=== PATIENT | female | born 1945 | race Asian ===

== ENCOUNTER 2017-06-05 15:53 | Emergency (ER) | payer OTHER ==
[~2017-06-05] VITALS: Ht 165.1 cm; Wt 67.0 kg
[~2017-06-05 15:53] MED LIST: ALEN70TA30 PO; BISA5TAB6 PO; CALC-484 PO; FENO134C PO; [UNRECOGNIZED DRUG - OTHER]
[2017-06-05 16:03] VITALS: Ht 165.1 cm; Wt 67.0 kg
--- NOTE | 2017-06-05 17:06 | ERD ---
ER Documentation Chief Complaint Date/Time DATE: 06/05/17 TIME: 17:01 Chief Complaint Sent from MD for eval left ankle pain HPI Patient is a 72-year-old female with a past medical history of diabetes and hyperlipidemia who presents to the emergency department for concerns of left ankle pain 2 months. Patient is Divehi speaking. RT staff present throughout encounter to assist with translation. Patient states she was referred here by her primary care physician. Patient states 2 months ago she was turning when her foot accidentally got stuck in the hole outside and she twisted her leg. She states since that time she has had pain with ambulating and bearing weight to the affected extremity. Patient has been ambulating on the affected extremity. Patient did see her primary care physician recently who ordered x- ray imaging. Per report patient brings in, patient has a "nondisplaced transverse fracture of the distal left fibula. Moderate plantar calcaneal spur. There is a small enthesophyte at the posterior Cutaneous Achilles tendon insertion. Ankle mortise is intact. " She has been bearing weight to the affected extremity. Patient denies any previous injuries. Denies any fevers, chills, nausea, vomiting, head injury, back pain or loss of consciousness per ROS All systems reviewed and are negative except as per history of present illness. Medications Home Meds Active Scripts Ibuprofen* (Motrin*) 400 Mg Tab, 400 MG PO Q6, #30 TAB Prov:LAYTON SALES PA-C 06/05/17 Reported Medications Alendronate Sodium* (Fosamax*) 70 Mg Tablet, 70 MG PO WEEKLY 12/03/12 [Doscusate] No Conflict Check, HS 12/03/12 Fenofibrate, Micronized (Fenofibrate) 134 Mg Capsule, 134 MG PO DAILY 12/03/12 Bisacodyl* (Bisacodyl*) 5 Mg Tablet.dr, 5 MG PO DAILY 12/03/12 Calcium Carbonate/Vitamin D3 (Calcium 600 + D Tablet) 1 Tab Tablet, 1 TAB PO BID 12/03/12 Allergies Allergies: Coded Allergies: No Known Allergy (Unverified , 09/03/14) PMhx/Soc History of Surgery: No Anesthesia Reaction: No Hx Neurological Disorder: Yes (CHRONIC BACK PAIN) Hx Respiratory Disorders: Yes (URI) Hx Cardiac Disorders: No Hx Psychiatric Problems: No Hx Miscellaneous Medical Probl: No Hx Alcohol Use: No Hx Substance Use: No Hx Tobacco Use: No Smoking Status: Never smoker Physical Exam Vitals Vital Signs Date Time Temp Pulse Resp B/P Pulse Ox O2 Delivery O2 Flow Rate FiO2 06/05/17 16:03 98.6 77 20 135/65 96 Physical Exam GENERAL: Well-developed, well-nourished female. Appears in no acute distress. HEAD: Normocephalic, atraumatic. EYES: Pupils are equally reactive bilaterally. EOMs grossly intact. No conjunctival erythema. ENT: Moist mucous membranes. No uvula deviation. No kissing tonsils. NECK: Supple. No meningismus. Normal range of motion of the neck. LUNG: Clear to auscultation bilaterally. No rhonchi, wheezing, rales or coarse breath sounds. HEART: Regular rate and rhythm. No murmurs, rubs or gallops. EXTREMITIES: Equal pulses bilaterally. No peripheral clubbing, cyanosis or edema. No unilateral leg swelling. NEUROLOGIC: Alert and oriented. Moving all four extremities without any difficulty. Normal speech. SKIN: Normal color. Warm and dry. No rashes or lesions. LEFT ANKLE: No obvious deformity. Swelling noted on the lateral aspect of the ankle. Skin intact. Decreased range of motion of the ankle secondary swelling. Nontender palpation of the knee, midfoot, fifth metatarsal. Tender palpation of the lateral ankle and mid tibia. Sensation intact to light touch. Neurovascularly intact. (Able to plantarflex, dorsiflex, chelita foot, invert foot , raise big toe.) 2+ DP and DT pulses. Procedures/MDM ED COURSE: The patient was stable throughout ED course. I kept the patient and/or family informed of laboratory and diagnostic imaging results throughout the ED course. DIAGNOSTIC IMAGING: Read by radiologist. Patient: MARY BRANDT : 1945 Age: 72 Sex: F MR #: [id number] DOS: 06/05/171655 Ordering MD: LAYTON SALES PA-C Location: [facility] Room/Bed: PROCEDURE: XR Ankle. CLINICAL INDICATION: Injury TECHNIQUE: Three views of the left ankle were performed. COMPARISON: None. FINDINGS: There is a comminuted, minimally displaced fracture of the lateral malleolus. The proximal tibia and fibula are intact. No additional fractures are identified. Enthesopathic changes are present at the calcaneus. Os peroneum. Type 2 os naviculare. The ankle mortise is preserved. There is lateral soft tissue swelling and a tibiotalar joint effusion. IMPRESSION: 1. Mildly displaced fracture at the lateral malleolus. 2. Soft tissue swelling and tibiotalar joint effusion. RPTAT: UU .Bryson Diaz MD, MD Date Time Electronically viewed and signed by .Bryson Diaz MD, MD on 06/05/2017 19:36 .d/ CC: LAYTON SALES PA-C DIAGNOSTIC IMAGING REPORT Patient: MARY BRANDT : 1945 Age: 72 Sex: F MR #: [id number] DOS: 06/05/17 1656 Ordering MD: LAYTON SALES PA-C Location: [facility] Room/Bed: PROCEDURE: XR Ankle. CLINICAL INDICATION: Injury TECHNIQUE: Three views of the left ankle were performed. COMPARISON: None. FINDINGS: There is a comminuted, minimally displaced fracture of the lateral malleolus. The proximal tibia and fibula are intact. No additional fractures are identified. Enthesopathic changes are present at the calcaneus. Os peroneum. Type 2 os naviculare. The ankle mortise is preserved. There is lateral soft tissue swelling and a tibiotalar joint effusion. IMPRESSION: 1. Mildly displaced fracture at the lateral malleolus. 2. Soft tissue swelling and tibiotalar joint effusion. RPTAT: UU .Bryson Diaz MD, MD Date Time Electronically viewed and signed by .Bryson Diaz MD, MD on 06/05/2017 19:36 .d/ CC: LAYTON SALES PA-C PROCEDURES: SPLINT APPLICATION: The patient was verbally consented at bedside prior to splint application. Patient was explained the risks, benefits and alternatives to this procedure. The patient was neurovascularly intact prior to and status post application of the splint. The patient tolerated the procedure well with no complications. Splint type: short leg posterior splint Extremity: left LE Indication: fibula fracture MEDICATIONS GIVEN: none Patient was offered analgesics however she declined. MEDICAL DECISION MAKING: This is a 72-year-old female presents with ankle pain 2 months. Patient was referred to the ED by her primary care physician. Patient states she did twist her foot in a hole approximately 2 months ago. Patient has continued to have persistent pain when ambulating. Patient brings in a report which states patient does have a nondisplaced transverse fracture of the distal left fibula. Vital signs were reviewed. Patient was afebrile. Given that the patient has remained bearing weight to the affected extremity, I did reobtain x-rays at this time. Xrays of ankle showed 1. Mildly displaced fracture at the lateral malleolus. 2. Soft tissue swelling and tibiotalar joint effusion. Xrays of the tibia/fibula showed 1. Mildly displaced fracture at the lateral malleolus. 2. Soft tissue swelling and tibiotalar joint effusion. Patient was placed in a history of short leg splint. Given that patient was unable to use crutches, case management was called to assist with patient receiving a walker. Patient was discharge home with walker. Patient is to remain nonweightbearing to the affected extremity until seen by an senior design engineering specialist. Given these findings, the patients presentation is most consistent with left tibial fracture. I have a much lower clinical concern for ankle dislocation, tibial plateau fracture, Maisonneuve fracture, foot fracture, osteomyelitis, septic joint, gout, osteoarthritis, DVT, compartment syndrome. At this time, unable to rule out any tendon and ligament injuries. PRESCRIPTIONS: Ibuprofen DISCHARGE: At this time, patient is stable for discharge and outpatient management. Patient given a copy of all imaging studies obtained today. Non weight bearing instructions provided. I have instructed the patient to follow-up with his/her primary care physician in 1-2 days. I have discussed with the patient the possibility of needing to see an senior design engineering specialist for further workup and imaging if the pain persists. I have instructed the patient to promptly return to the ER for any new or worsening symptoms including increased pain, swelling, redness, warmth or fever. The patient and/or family expressed understanding of and agreement with this plan. All questions were answered. Home care instructions were provided. Disclaimer: Inadvertent spelling and grammatical errors are likely due to EHR/ dictation software use and do not reflect on the overall quality of patient care. Also, please note that the electronic time recorded on this note does not necessarily reflect the actual time of the patient encounter. Departure Diagnosis: Primary Impression: Left fibular fracture Encounter type: initial encounter Fibula location: lateral malleolus Fracture type: closed Fracture alignment: nondisplaced Qualified Code: S82.65XA - Closed nondisplaced fracture of lateral malleolus of left fibula, initial encounter Condition: Stable Patient Instructions: Ankle Fracture (Distal Fibula), Closed Referrals: [facility] YOU HAVE RECEIVED A MEDICAL SCREENING EXAM AND THE RESULTS INDICATE THAT YOU DO NOT HAVE A CONDITION THAT REQUIRES URGENT TREATMENT IN THE EMERGENCY DEPARTMENT. FURTHER EVALUATION AND TREATMENT OF YOUR CONDITION CAN WAIT UNTIL YOU ARE SEEN IN YOUR DOCTORS OFFICE WITHIN THE NEXT 1-2 DAYS. IT IS YOUR RESPONSIBILITY TO MAKE AN APPOINTMENT FOR FOLOW-UP CARE. IF YOU HAVE A PRIMARY DOCTOR --you should call your primary doctor and schedule an appointment IF YOU DO NOT HAVE A PRIMARY DOCTOR YOU CAN CALL OUR PHYSICIAN REFERRAL HOTLINE AT IF YOU CAN NOT AFFORD TO SEE A PHYSICIAN YOU CAN CHOSE FROM THE FOLLOWING [facility] CLINICS [facility] [address] [facility] [address] [facility]. [facility] [address] [facility] [address] [facility] [address] [facility]. [facility]. [address] [facility] [facility] YOU HAVE RECEIVED A MEDICAL SCREENING EXAM AND THE RESULTS INDICATE THAT YOU DO NOT HAVE A CONDITION THAT REQUIRES URGENT TREATMENT IN THE EMERGENCY DEPARTMENT. FURTHER EVALUATION AND TREATMENT OF YOUR CONDITION CAN WAIT UNTIL YOU ARE SEEN IN YOUR DOCTORS OFFICE WITHIN THE NEXT 1-2 DAYS. IT IS YOUR RESPONSIBILITY TO MAKE AN APPOINTMENT FOR FOLOW-UP CARE. IF YOU HAVE A PRIMARY DOCTOR --you should call your primary doctor and schedule and appointment IF YOU DO NOT HAVE A PRIMARY DOCTOR YOU CAN CALL OUR PHYSICIAN REFERRAL HOTLINE AT . IF YOU CAN NOT AFFORD TO SEE A PHYSICIAN YOU CAN CHOSE FROM THE FOLLOWING [facility] INSTITUTIONS: [facility] [address] [place] [address] [facility] [address] [place] [address] [facility] [address] [place] [address] Additional Instructions: Call your primary care doctor TOMORROW for an appointment during the next 1-2 days.See the doctor sooner or return here if your condition worsens before your appointment time. Follow up with orthopedics in the next 1-2 days. Remain non weight bearing to the affected extremity. Use crutches at all times. See senior design engineering specialist for cast versus surgical repair options. LAYTON SALES PA-C Jun 05, 2017 17:06
--- NOTE | 2017-06-05 19:35 | RADRPT ---
PROCEDURE: XR Tibia and Fibula. CLINICAL INDICATION: Injury TECHNIQUE: Two views of the left tibia and fibula are available for review. COMPARISON: None available FINDINGS: There is a comminuted, minimally displaced fracture of the lateral malleolus. The proximal tibia an d fibula are intact. No additional fractures are identified. Enthesopathic changes are present at the calcaneus. IMPRESSION: 1. Mildly displaced fracture at the lateral malleolus. RPTAT: UU .Bryson Diaz MD, MD Date Time Electronically viewed and signed by .Bryson Diaz MD, MD on 06/05/2017 19:35 .d/
--- NOTE | 2017-06-05 19:36 | RADRPT ---
PROCEDURE: XR Ankle. CLINICAL INDICATION: Injury TECHNIQUE: Three views of the left ankle were performed. COMPARISON: None. FINDINGS: There is a comminuted, minimally displaced fracture of the lateral malleolus. The proximal tibia an d fibula are intact. No additional fractures are identified. Enthesopathic changes are present at the calcaneus. Os peroneum. Type 2 os naviculare. The ankle mortise is preserved. There is lateral soft tissue swelling and a tibiotalar joint effusion. IMPRESSION: 1. Mildly displaced fracture at the lateral malleolus. 2. Soft tissue swelling and tibiotalar joint effusion. RPTAT: UU .Bryson Diaz MD, Date Time Electronically viewed and signed by .Bryson Diaz MD, MD on 06/05/2017 19:36 .d/
[2017-06-05] MEDS ORDERED: IBUP400T22 PO (20:50)
== END 2017-06-05 21:30 | disposition home or self-care (01) ==
LOC: FTE 15:53
DX: S82.65XA Nondisplaced fracture of lateral malleolus of left fibula, initial encounter for closed fracture (principal); W22.8XXA Striking against or struck by other objects, initial encounter; Y92.9 Unspecified place or not applicable
CPT/HCPCS: 73590; 73610